=== PATIENT | male | born 1980 ===

== ENCOUNTER 2017-05-29 14:11 | Emergency (ER) | payer MEDICAID, OTHER ==
[2017-05-29 14:16] VITALS: BP 109/66; PULSE 81; RESP 16; TEMP 97; O2SAT 96
[2017-05-29] MEDS ORDERED: DiphenhydrAMINE 50 mg/ml Inj IM STA (14:25)
--- NOTE | 2017-05-29 14:27 | ED PDOC ---
HPI: Allergic Reaction Time Seen by Provider: 05/29/17 14:16 Chief Complaint (Nursing): Allergic Reaction Chief Complaint (Provider): pruritic rash History Per: Patient History/Exam Limitations: no limitations Onset/Duration Of Symptoms: Days (x1 week) Current Symptoms Are (Timing): Still Present Possible Cause: Unknown Associated Symptoms: Skin Rash, Itching. denies: Redness, Chest Pain Home/EMS Treatment: Benadryl Additional Complaint(s): Rocael Durant, a 36 year old male, presents to the ED complaining of a pruritic rash on his neck and arms x1 week. The patient states that he has been taking benadryl without relief. He also reports that he has been applying baby powder to the affected area. Denies fever shortness of breath and chest pain. Pt. is uncertain as to what the reaction can be caused by as he has not used any new creams, detergents or lotions. PMD: FAMILY PROVIDER,NO Past Medical History Reviewed: Historical Data, Nursing Documentation, Vital Signs Vital Signs: Last Vital Signs Temp 97.0 F L 05/29/17 14:12 Pulse 81 05/29/17 14:12 Resp 16 05/29/17 14:12 BP 109/66 05/29/17 14:12 Pulse Ox 96 05/29/17 14:12 - Medical History PMH: No Chronic Diseases - Family History Family History: States: Unknown Family Hx - Social History Current smoker - smoking cessation education provided: No Ex-Smoker (has not smoked in the last 12 months): No Alcohol: None Drugs: Other - Immunization History Hx Tetanus Toxoid Vaccination: No - Home Medications Home Medications: Ambulatory Orders Medication Instructions Recorded DiphenhydrAMINE [Benadryl] 50 mg PO Q6 PRN #30 cap 05/29/17 Methylprednisolone [Medrol Dose 4 mg PO DAILY #21 mg 05/29/17 Pack (21 tabs)] Triamcinolone Acetonide [Kenalog 1 applic TP BID PRN #1 tube 05/29/17 0.5% cream] - Allergies Allergies/Adverse Reactions: Allergies Allergy/AdvReac Type Severity Reaction Status Date / Time shellfish derived Allergy URTICARIA Verified 05/29/17 14:23 Review of Systems ROS Statement: Except As Marked, All Systems Reviewed And Found Negative Constitutional: Negative for: Fever Cardiovascular: Negative for: Chest Pain Respiratory: Negative for: Shortness of Breath Physical Exam - Reviewed Nursing Documentation Reviewed: Yes Vital Signs Reviewed: Yes - Physical Exam Appears: Positive for: Non-toxic, No Acute Distress Head Exam: Positive for: ATRAUMATIC, NORMAL INSPECTION, NORMOCEPHALIC Skin: Positive for: Normal Color (erythematous maculopapular rash with blanching but no vesicles pustules scaling or break in skin integrity on b/l axilla and b/l lateral sides of the neck; baby powder noted in affected raeas.) , Warm, Dry, Rash (erythematous maculopapular rash with blanching but no vesicles pustules scaling or break in skin integrity on b/l axilla and b/l lateral sides of the neck; Bbay powder noted in affected areas.) ENT: Positive for: Normal ENT Inspection. Negative for: Tonsillar Swelling Neck: Positive for: Normal, Painless ROM, Supple Cardiovascular/Chest: Positive for: Regular Rate, Rhythm, Chest Non Tender. Negative for: Tachycardia Respiratory: Positive for: Normal Breath Sounds. Negative for: Wheezing, Respiratory Distress Neurologic/Psych: Positive for: Alert, Oriented, Gait - ECG O2 Sat by Pulse Oximetry: 96 (RA) Pulse Ox Interpretation: Normal - Progress ED Course And Treament: 1416 Initial Impression 36 y/o male presenting with pruritic rash Initial Plan: * Benadryl 50mg IM * SOLU-medrol 125mg IM * Reevaluation Patient is medically stable and requires no further treatment in the ED at this time. Patient discharged home with prescription for benadryl. Scribe Attestation Documented by Deirdre Dunlap acting as a scribe for Baljinder Pantoja PA-C. Scribe Attestation All medical record entries made by the Scribe were at my direction and personally dictated by me. I have reviewed the chart and agree that the record accurately reflects my personal performance of the history, physical exam, medical decision making, and the department course for this patient. I have also personally directed, reviewed, and agree with the discharge instructions and disposition. Disposition - Clinical Impression Clinical Impression: Contact allergic reaction - Patient ED Disposition Is Patient to be Admitted: No - Disposition Referrals: [facility] [Outside] Disposition: Routine/Home Disposition Time: 14:27 Condition: STABLE Additional Instructions: Follow up with manager reading for further evaluation. Prescriptions: DiphenhydrAMINE [Benadryl] 50 mg PO Q6 PRN #30 cap PRN Reason: itching or rash Methylprednisolone [Medrol Dose Pack (21 tabs)] 4 mg PO DAILY #21 mg Triamcinolone Acetonide [Kenalog 0.5% cream] 1 applic TP BID PRN #1 tube PRN Reason: Rash Instructions: General Allergic Reaction (ED) Forms: [facility] (Maltese) Print Language: ETHIOPIAN - POA Present On Arrival: None
[2017-05-29] MEDS ORDERED: DiphenhydrAMINE 50 mg/ml Inj ONE (14:29)
== END 2017-05-29 14:40 | disposition home or self-care (01) ==
LOC: H.ER 14:11
DX: L23.9 Allergic contact dermatitis, unspecified cause (principal)
CPT/HCPCS: 96372; 99282; J1200; J2930

== ENCOUNTER 2018-05-09 19:25 | Emergency (ER) | payer OTHER ==
[2018-05-09] MEDS ORDERED: Promethazine DM 6.25 mg-15 mg/5 ml Syrup PO STA (20:05)
--- NOTE | 2018-05-09 20:06 | ED PDOC ---
HPI: Influenza Time Seen by Provider: 05/09/18 19:48 Chief Complaint: Cough, Cold, Congestion Chief Complaint (Provider): cough, congestion History Per: Patient Exam Limitations: no limitations Onset/Duration Of Symptoms: Days (x2 weeks) Sick Contacts (Context): Family Member(s) (son) Additional complaint(s):: Rocael Durant, a 37 year old male with no significant past medical history, presents to the ED with nasal congestion, bilateral ear pain described as pressure, and throat pain onset x2 weeks. Patient reports a wet cough and has been taking Benadryl, Claritin and Nyquil with no relief. He denies fever, chills, diarrhea, vomiting, SOB, chest pain, headache, dizziness, or recent travel. Patient states his son had a fever and was sick over the weekend with a cold. No further medical complaints. PMD: None Past Medical History Reviewed: Historical Data, Nursing Documentation, Vital Signs Vital Signs: Last Vital Signs Temp 98.4 F 05/09/18 19:35 Pulse 89 05/09/18 19:35 Resp 16 05/09/18 19:35 BP 115/70 05/09/18 19:35 Pulse Ox 96 05/09/18 19:35 - Medical History PMH: No Chronic Diseases - Family History Family History: States: Unknown Family Hx - Social History Ex-Smoker (has not smoked in the last 12 months): Yes Drugs: Other (former abuser) - Home Medications Home Medications: Ambulatory Orders Medication Instructions Recorded DiphenhydrAMINE [Benadryl] 50 mg PO Q6 PRN #30 cap 05/29/17 Methylprednisolone [Medrol Dose 4 mg PO DAILY #21 mg 05/29/17 Pack (21 tabs)] Triamcinolone Acetonide [Kenalog 1 applic TP BID PRN #1 tube 05/29/17 0.5% cream] Albuterol Sulfate [Ventolin Hfa] 1 puff IH Q4 PRN #1 unit 05/09/18 Fluticasone Nasal [Flonase] 1 actuation NS DAILY #1 unit 05/09/18 RX: Naproxen 500 mg PO BID PRN #20 tab 05/09/18 RX: Promethazine DM [Phenergan DM 5 ml PO Q6 PRN #200 ml 05/09/18 Syrup] - Allergies Allergies/Adverse Reactions: Allergies Allergy/AdvReac Type Severity Reaction Status Date / Time shellfish derived Allergy URTICARIA Verified 05/29/17 14:23 Review of Systems ROS Statement: Except As Marked, All Systems Reviewed And Found Negative Constitutional: Negative for: Fever ENT: Positive for: Ear Pain, Nose Congestion, Throat Pain Respiratory: Positive for: Cough Gastrointestinal: Negative for: Vomiting Physical Exam - Reviewed Nursing Documentation Reviewed: Yes Vital Signs Reviewed: Yes - Physical Exam Comments: GENERAL APPEARANCE: Patient is awake, alert, oriented x3, in no acute distress. SKIN: Warm, dry; (-) cyanosis;(-) rash EYES: (-) conjunctival pallor, (-) icterus. ENMT: TMs (-) erythema (-) bulging Pharynx: clear, uvula midline (+) faint tonsillar erythema, (-) tonsillar exudate. Airway patent, (-) stridor. Mucous membranes moist (-) sinus tenderness. NECK: Supple, FROM (-) stiffness, (-) meningismus, (-) lymphadenopathy. CHEST AND RESPIRATORY: (-) rales, (-) rhonchi, (-) wheezes; breath equal bilaterally. Respirations even and nonlabored, speaking in full sentences. HEART AND CARDIOVASCULAR: (-) irregularity ABDOMEN AND GI: Soft; (-) tenderness; (-) distention, (-) guarding EXTREMITIES: (-) deformity NEURO AND PSYCH: Mental status as above. Speech: clear. Gait: steady. (-) facial asymmetry Medical Decision Making Medical Decision Making: Time: 19:45 Initial Impression: cough, congestion, sore throat, probable viral syndrome Initial Plan: --CXR 2 views --Throat culture --Influenza --Rapid strep --Promethazine PO 2155 Rapid Strep: Negative Influenza: Negative CXR: no acute disease as read by Kim TEE Patient notified that official radiology read is still pending and that he would be notified of any discrepancies via phone. On re-evaluation, patient reports improvement of symptoms. On exam, patient remains AAOx3, in no acute distress. Lungs clear to auscultation, cardiac RRR, repeat neuro exam shows no focal findings. Vitals stable. Lab/Diagnostic results d/w the patient in great detail. Diagnosis of cough, congestion, sore throat, probable viral illness d/w the patient. Based on history, exam and diagnostic results, plan will be for outpatient follow up with clinic/PMD. Patient instructed to follow-up with pmd / referral provided / the clinic in 1- 2 days without fail. Advised to take medication as prescribed. Return to the emergency room at any time for any new or worsening symptoms. Patient states he fully agrees with and understands discharge instructions. States that he agrees with the plan and disposition. Verbalized and repeated discharge instructions and plan. I have given the patient opportunity to ask any additional questions. Scribe Attestation: Documented by Noris Marcum, acting as a scribe for Karissa Alvarez PA-C. Provider Scribe Attestation: All medical record entries made by the Scribe were at my direction and personally dictated by me. I have reviewed the chart and agree that the record accurately reflects my personal performance of the history, physical exam, medical decision making, and the department course for this patient. I have also personally directed, reviewed, and agree with the discharge instructions and disposition. - ECG O2 Sat by Pulse Oximetry: 96 (RA) Pulse Ox Interpretation: Normal Disposition - Clinical Impression Clinical Impression: Cough, Nasal congestion, Sore throat (viral), Viral URI - Patient ED Disposition Is Patient to be Admitted: No Counseled Patient/Family Regarding: Studies Performed, Diagnosis, Need For Followup, Rx Given - Disposition Referrals: [facility] [Outside] Disposition: Routine/Home Disposition Time: 21:55 Condition: IMPROVED Additional Instructions: The emergency medical care you received today was directed at your acute symptoms. If you were prescribed any medication, please fill it and take as directed. It may take several days for your symptoms to resolve. Return to the Emergency Department if your symptoms worsen, do not improve, or if you have any other problems. Please contact your doctor in 2 days for re-evaluation and follow up / or call one of the physicians/clinics you have been referred to that are listed on the Patient Visit Information form that is included in your discharge packet. Bring any paperwork you were given at discharge with you along with any medications you are taking to your follow up visit. Our treatment cannot replace ongoing medical care by a primary care provider (PCP) outside of the emergency department. Prescriptions: Albuterol Sulfate [Ventolin Hfa] 1 puff IH Q4 PRN #1 unit PRN Reason: Shortness Of Breath Fluticasone Nasal [Flonase] 1 actuation NS DAILY #1 unit RX: Naproxen 500 mg PO BID PRN #20 tab PRN Reason: Pain, Moderate (4-7) RX: Promethazine DM [Phenergan DM Syrup] 5 ml PO Q6 PRN #200 ml PRN Reason: Cough Instructions: Viral Pharyngitis, Cough in Adults, Sore Throat in Adults, Cough, Runny Nose, and the Common Cold Forms: [facility] (Nepali), [facility] School/Work Excuse Print Language: [place] CITIZEN - POA Present On Arrival: None Results - Lab Results Lab Results: 05/09/18 05/09/18 20:35 20:35 Influenza Typ A,B (EIA) Negative for flu a/b Grp A Beta Strep Ag Negative
[2018-05-10 01:09] VITALS: BP 115/70; PULSE 89; RESP 16; TEMP 98.4; O2SAT 96
--- NOTE | 2018-05-10 10:27 | RAD ---
Date of service: 05/09/2018 HISTORY: Cough for 2 weeks COMPARISON: No prior. TECHNIQUE: Chest PA and lateral FINDINGS: LINES AND TUBES: None. LUNG AND PLEURA: The lungs are well inflated and clear. No pleural effusion or pneumothorax. HEART AND MEDIASTINUM: The heart is not enlarged. No aortic atherosclerotic calcification present. The hilar and mediastinal contours are within normal limits. SKELETAL STRUCTURES: The bony structures are within normal limits for the patient's age. VISUALIZED UPPER ABDOMEN: Normal. OTHER FINDINGS: None. IMPRESSION: No active pulmonary disease.
== END 2018-05-09 22:31 | disposition home or self-care (01) ==
LOC: H.ER 19:25
DX: R05 Cough (principal); J02.9 Acute pharyngitis, unspecified; R09.81 Nasal congestion

== ENCOUNTER 2018-07-15 20:37 | Emergency (ER) | payer OTHER ==
[2018-07-15 20:46] VITALS: BP 127/79; PULSE 86; RESP 18; TEMP 97.9; O2SAT 98
--- NOTE | 2018-07-15 21:09 | ED PDOC ---
HPI: Eye Injury/Pain Time Seen by Provider: 07/15/18 20:50 Chief Complaint (Nursing): Eye Problem Chief Complaint (Provider): Eye problem History Per: Patient History/Exam Limitations: no limitations Current Symptoms Are (Timing): Still Present Additional Complaint(s): 37 year old male presents to the ED with itchy right eye for 2 weeks. 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 He states he tried to clean out the eye at home and tried to use Visine drops to flush out the eye with no relief. He now states he has a bump on the right eye with no pain but indicates eye is itchy and still feels as if something is in it. PMD: none provided Past Medical History Reviewed: Historical Data, Nursing Documentation, Vital Signs Vital Signs: Last Vital Signs Temp 97.9 F 07/15/18 20:45 Pulse 86 07/15/18 20:45 Resp 18 07/15/18 20:45 BP 127/79 07/15/18 20:45 Pulse Ox 98 07/15/18 20:45 - Medical History PMH: No Chronic Diseases - Surgical History Surgical History: No Surg Hx - Family History Family History: States: Unknown Family Hx - Immunization History Hx Tetanus Toxoid Vaccination: No - Home Medications Home Medications: Ambulatory Orders Medication Instructions Recorded DiphenhydrAMINE [Benadryl] 50 mg PO Q6 PRN #30 cap 05/29/17 Methylprednisolone [Medrol Dose 4 mg PO DAILY #21 mg 05/29/17 Pack (21 tabs)] Triamcinolone Acetonide [Kenalog 1 applic TP BID PRN #1 tube 05/29/17 0.5% cream] Albuterol Sulfate [Ventolin Hfa] 1 puff IH Q4 PRN #1 unit 05/09/18 Fluticasone Nasal [Flonase] 1 actuation NS DAILY #1 unit 05/09/18 Naproxen 500 mg PO BID PRN #20 tab 05/09/18 Promethazine DM [Phenergan DM 5 ml PO Q6 PRN #200 ml 05/09/18 Syrup] Ofloxacin Ophth 0.3% [Ocuflox 2 drop OD QID #5 ml 07/15/18 Ophth 0.3%] - Allergies Allergies/Adverse Reactions: Allergies Allergy/AdvReac Type Severity Reaction Status Date / Time shellfish derived Allergy URTICARIA Verified 07/15/18 20:43 Review of Systems ROS Statement: Except As Marked, All Systems Reviewed And Found Negative Eyes: Positive for: Other (Bump on right eye with itchiness) Physical Exam - Reviewed Nursing Documentation Reviewed: Yes Vital Signs Reviewed: Yes - Physical Exam Appears: Positive for: Non-toxic, No Acute Distress Head Exam: Positive for: ATRAUMATIC, NORMOCEPHALIC Skin: Positive for: Normal Color, Warm, Dry Eye Exam: Positive for: EOMI, PERRL, Other (chalazion of the right eye) Neck: Positive for: Normal, Painless ROM Cardiovascular/Chest: Positive for: Regular Rate, Rhythm Respiratory: Positive for: Normal Breath Sounds. Negative for: Wheezing, Respiratory Distress Neurologic/Psych: Positive for: Alert, Oriented. Negative for: Motor/Sensory Deficits - ECG O2 Sat by Pulse Oximetry: 98 (RA) Pulse Ox Interpretation: Normal Medical Decision Making Medical Decision Making: Initial Plan: [place] with 1L fluid to irrigate eye. Will reevaluate. After van cleanse and re-evaluation, pt feels that there is no further object in his eye; chalazion is gone Pt is stable for discharge with opth abx Scribe Attestation: Documented by Austin Blackman acting as a scribe for Babar MATHIS. Provider Scribe Attestation: All medical record entries made by the Scribe were at my direction and personally dictated by me. I have reviewed the chart and agree that the record accurately reflects my personal performance of the history, physical exam, medical decision making, and the department course for this patient. I have also personally directed, reviewed, and agree with the discharge instructions and disposition. Disposition - Clinical Impression Clinical Impression: Foreign body in eye, Chalazion of right upper eyelid - Patient ED Disposition Is Patient to be Admitted: No Doctor Will See Patient In The: Office Counseled Patient/Family Regarding: Studies Performed, Diagnosis, Rx Given - Disposition Disposition: Routine/Home Disposition Time: 22:29 Condition: STABLE Prescriptions: Ofloxacin Ophth 0.3% [Ocuflox Ophth 0.3%] 2 drop OD QID #5 ml Instructions: Chalazion, Foreign Body in Eye (DC), Foreign Body in Eye Forms: [facility] (Belarusian)
[2018-07-15] MEDS ORDERED: Ofloxacin Ophth 0.3% Soln OD STA (22:24)
== END 2018-07-15 22:46 | disposition home or self-care (01) ==
LOC: H.ER 20:37
DX: H00.11 Chalazion right upper eyelid (principal)